=== PATIENT | male | born 1970 | race Caucasian/White ===

== ENCOUNTER → 2018-11-05 12:24 | Outpatient (CLI) | payer BC, SELFPAY ==
[2018-11-09 18:37] LABS: Testosterone, Total, LC/MS 561.3 ng/dL (264.0-916.0)
== END ==
PROVIDERS: Visit Provider Urology
DX: E29.1 Testicular hypofunction (principal)
CPT/HCPCS: 36415; 84403

== ENCOUNTER → 2022-11-08 11:25 | Outpatient (CLI) | payer MEDICARE, BC, SELFPAY ==
[2022-11-08 18:40] LABS: Alanine Aminotransferase 24 U/L (12-78); Albumin Level 4.2 g/dl (3.5-5.0); Albumin/Globulin Ratio 1.8 (1.1-1.8); Alkaline Phosphatase 75 U/L (38-126); Anion Gap 16.1 mEq/L (5-15); Aspartate Amino Transferase 29 U/L (17-59); Basophils % 0.6 % (0.1-2.0); Bilirubin,Total 0.8 mg/dl (0.2-1.3); Blood Urea Nitrogen 35 mg/dl (9-20); Calcium 9.7 mg/dl (8.4-10.2); Carbon Dioxide 25 mmol/L (22.0-30.0); Chloride 105 mmol/L (98-107); Chol/HDL Ratio 4.5 (1-3.5); Cholesterol 130 mg/dl (140-200); Eosinophils # 0.1 K/mm3 (0.0-0.4); Eosinophils % 1.8 % (0.1-12.0); Estimated Glomerular Filt Rate 58 ml/min (>60); GFR (African American) 70 ML/MIN (>60); Globulin 2.4 g/dL (1.3-3.2); Glucose 89 mg/dl (74-100); HDL Cholesterol 29 mg/dl (40-60); Hematocrit 40.2 % (42.0-52.0); Hemoglobin 12.7 g/dL (14.1-18.0); Lymphocytes # 1.4 K/mm3 (0.7-4.5); Lymphocytes % 19.4 % (10-50); Mean Corpuscular HGB Conc 31.5 g/dL (31.8-35.4); Mean Corpuscular Volume 98.3 fl (80-94); Mean Platelet Volume 10.3 fl (7.4-10.4); Monocytes # 0.6 K/mm3 (0.1-1.0); Monocytes % 7.5 % (1.7-9.3); Neutrophils # 5.3 K/mm3 (1.8-7.8); Neutrophils % 70.8 % (37.0-80.0); Platelet Count 254 K/mm3 (142-424); Potassium 5.1 mmoL/L (3.5-5.1); Red Blood Count 4.09 M/mm3 (4.60-6.20); Red Cell Distribution Width 14.5 % (11.5-17.5); Sodium 141 mmol/L (136-145); Total Protein,Serum 6.6 g/dl (6.3-8.2); Triglycerides 230 mg/dl (30-150); Uric Acid 9.9 mg/dl (3.5-8.5); VLDL Cholesterol 46 mg/dL (0-40); White Blood Count 7.4 K/mm3 (4.8-10.8)
[2022-11-09 14:13] LABS: Thyroid Stimulating Hormone 3.09 uIU/mL (0.465-4.68)
== END ==
PROVIDERS: PCP Family Medicine; Visit Provider Family Medicine
DX: M10.9 Gout, unspecified (principal); I10 Essential (primary) hypertension; E11.9 Type 2 diabetes mellitus without complications; E78.5 Hyperlipidemia, unspecified; E03.9 Hypothyroidism, unspecified; Z79.84 Long term (current) use of oral hypoglycemic drugs
CPT/HCPCS: 80053; 80061; 83036; 84443; 84550; 85025

== ENCOUNTER → 2023-09-04 11:30 | Outpatient (CLI) | payer MEDICARE, BC, SELFPAY ==
[2023-09-04 16:38] LABS: Basophils % 0.3 % (0.1-2.0); Eosinophils % 0.3 % (0.1-12.0); Hemoglobin 14.3 g/dL (14.1-18.0); Lymphocytes # 0.7 K/mm3 (0.7-4.5); Lymphocytes % 6.1 % (10-50); Mean Corpuscular HGB Conc 34.2 g/dL (31.8-35.4); Mean Corpuscular Hemoglobin 31.7 pg (27.0-31.2); Mean Corpuscular Volume 92.9 fl (80-94); Mean Platelet Volume 11.2 fl (7.4-10.4); Monocytes # 0.3 K/mm3 (0.1-1.0); Monocytes % 2.7 % (1.7-9.3); Neutrophils # 10.3 K/mm3 (1.8-7.8); Neutrophils % 90.5 % (37.0-80.0); Platelet Count 243 K/mm3 (142-424); Red Blood Count 4.52 M/mm3 (4.60-6.20); Red Cell Distribution Width 13.6 % (11.5-17.5); White Blood Count 11.4 K/mm3 (4.8-10.8)
[2023-09-04 16:49] LABS: MANUAL DIFFERENTIAL MANUAL DIFFERENTIAL (MANUAL DIFF)
[2023-09-04 17:14] LABS: Alanine Aminotransferase 31 U/L (12-78); Albumin Level 4.5 g/dl (3.5-5.0); Albumin/Globulin Ratio 1.5 (1.1-1.8); Alkaline Phosphatase 97 U/L (38-126); Anion Gap 18.8 mEq/L (5-15); Aspartate Amino Transferase 32 U/L (17-59); Bilirubin,Total 1.1 mg/dl (0.2-1.3); Blood Urea Nitrogen 26 mg/dl (9-20); Calcium 9.6 mg/dl (8.4-10.2); Carbon Dioxide 20 mmol/L (22.0-30.0); Chloride 102 mmol/L (98-107); Chol/HDL Ratio 5.6 (1-3.5); Cholesterol 169 mg/dl (140-200); Estimated Glomerular Filt Rate 63 ml/min (>60); GFR (African American) 76 ML/MIN (>60); Glucose 358 mg/dl (74-100); HDL Cholesterol 30 mg/dl (40-60); Potassium 5.8 mmoL/L (3.5-5.1); Sodium 135 mmol/L (136-145); Total Protein,Serum 7.5 g/dl (6.3-8.2); Triglycerides 277 mg/dl (30-150); VLDL Cholesterol 55 mg/dL (0-40)
[2023-09-04 17:20] LABS: Lymphocytes % 9 % (10-50); Monocytes % 1 % (2-9); Neutrophils % 90 % (42-76); Platelet Estimate Normal; RBC Morphology Normal; Total Cells Counted 100
[2023-09-04 17:25] LABS: Direct LDL Cholesterol 78.54 mg/dL (100-129)
[2023-09-04 17:28] LABS: Hemoglobin A1C 9.2 % (4.0-6.0)
== END ==
PROVIDERS: PCP Family Medicine; Visit Provider Family Medicine
DX: I10 Essential (primary) hypertension (principal); E11.9 Type 2 diabetes mellitus without complications; Z79.4 Long term (current) use of insulin
CPT/HCPCS: 80053; 80061; 83036; 85007; 85025

== ENCOUNTER 2023-12-12 16:20 | Outpatient (CLI) | payer MEDICARE, SELFPAY ==
[2023-12-12 16:48] LABS: Hemoglobin A1C 8.2 % (4.0-6.0)
[2023-12-12 17:11] LABS: Thyroid Stimulating Hormone 5.48 uIU/mL (0.465-4.68)
== END 2023-12-12 23:59 ==
LOC: LAB.DROPOF 16:23
PROVIDERS: PCP Family Medicine; Visit Provider Family Medicine
DX: E11.9 Type 2 diabetes mellitus without complications (principal); E03.9 Hypothyroidism, unspecified; Z79.4 Long term (current) use of insulin
CPT/HCPCS: 83036; 84443

== ENCOUNTER 2024-03-19 18:00 | Outpatient (CLI) | payer MEDICARE, SELFPAY ==
[2024-03-19 16:47] LABS: Hemoglobin A1C 8.6 % (4.0-6.0)
== END 2024-03-19 23:59 | disposition home or self-care (01) ==
LOC: LAB.DROPOF 03-20 10:11
PROVIDERS: PCP Family Medicine; Visit Provider Family Medicine
DX: E11.9 Type 2 diabetes mellitus without complications (principal); E03.9 Hypothyroidism, unspecified; Z79.4 Long term (current) use of insulin
CPT/HCPCS: 83036; 84443

== ENCOUNTER 2024-06-18 09:44 | Outpatient (CLI) | payer MEDICARE, SELFPAY ==
[2024-06-18 17:09] LABS: Hemoglobin A1C 6.7 % (4.0-6.0)
[2024-06-18 17:14] LABS: Thyroid Stimulating Hormone 5.91 uIU/mL (0.465-4.68)
== END 2024-06-18 23:59 | disposition home or self-care (01) ==
LOC: LAB.DROPOF 06-19 09:46
PROVIDERS: PCP Family Medicine; Visit Provider Family Medicine
DX: E11.9 Type 2 diabetes mellitus without complications (principal); E03.9 Hypothyroidism, unspecified
CPT/HCPCS: 83036; 84443

== ENCOUNTER 2024-09-18 09:30 | Outpatient (CLI) | payer MEDICARE, SELFPAY ==
[2024-09-18 16:14] LABS: Basophils # 0.1 K/mm3 (0-0.2); Basophils % 0.6 % (0.1-2.0); Eosinophils # 0.2 K/mm3 (0.0-0.4); Eosinophils % 1.9 % (0.1-12.0); Hematocrit 44.3 % (42.0-52.0); Hemoglobin 14.2 g/dL (14.1-18.0); Lymphocytes # 1.6 K/mm3 (0.7-4.5); Lymphocytes % 18.2 % (10-50); Mean Corpuscular HGB Conc 32.1 g/dL (31.8-35.4); Mean Corpuscular Hemoglobin 30.6 pg (27.0-31.2); Mean Corpuscular Volume 95.4 fl (80-94); Mean Platelet Volume 10.6 fl (7.4-10.4); Monocytes # 0.5 K/mm3 (0.1-1.0); Monocytes % 5.4 % (1.7-9.3); Neutrophils # 6.3 K/mm3 (1.8-7.8); Neutrophils % 73.8 % (37.0-80.0); Platelet Count 172 K/mm3 (142-424); Red Blood Count 4.65 M/mm3 (4.60-6.20); White Blood Count 8.6 K/mm3 (4.8-10.8)
[2024-09-18 16:38] LABS: Hemoglobin A1C 6.3 % (4.0-6.0)
[2024-09-18 16:42] LABS: Alanine Aminotransferase 27 U/L (12-78); Albumin Level 4.1 g/dl (3.5-5.0); Albumin/Globulin Ratio 1.6 (1.1-1.8); Alkaline Phosphatase 55 U/L (38-126); Aspartate Amino Transferase 28 U/L (17-59); Bilirubin,Total 0.9 mg/dl (0.2-1.3); Blood Urea Nitrogen 21 mg/dl (9-20); Calcium 9.3 mg/dl (8.4-10.2); Carbon Dioxide 22 mmol/L (22.0-30.0); Chloride 112 mmol/L (98-107); Chol/HDL Ratio 3.3 (1-3.5); Cholesterol 109 mg/dl (140-200); Estimated Glomerular Filt Rate 69 ml/min (>60); GFR (African American) 84 ML/MIN (>60); Globulin 2.5 g/dL (1.3-3.2); Glucose 90 mg/dl (74-100); HDL Cholesterol 33 mg/dl (40-60); Sodium 143 mmol/L (136-145); Total Protein,Serum 6.6 g/dl (6.3-8.2); Triglycerides 68 mg/dl (30-150); VLDL Cholesterol 14 mg/dL (0-40)
[2024-09-18 16:54] LABS: Direct LDL Cholesterol 66.13 mg/dL (100-129)
[2024-09-18 17:13] LABS: Thyroid Stimulating Hormone 8.21 uIU/mL (0.465-4.68)
== END 2024-09-18 23:59 | disposition home or self-care (01) ==
LOC: LAB.DROPOF 09-19 12:31
PROVIDERS: PCP Family Medicine; Visit Provider Family Medicine
DX: E11.9 Type 2 diabetes mellitus without complications (principal); E03.9 Hypothyroidism, unspecified; E78.5 Hyperlipidemia, unspecified; R06.02 Shortness of breath
CPT/HCPCS: 80053; 80061; 83036; 84443; 85025

== ENCOUNTER 2024-12-18 14:03 | Outpatient (CLI) | payer MEDICARE, SELFPAY ==
[2024-12-18 18:11] LABS: Microalbumin/Creatinine Ratio 6.1
[2024-12-18 18:35] LABS: Creatinine,Urine Random 118 mg/dL (Not Estab.)
== END 2024-12-18 23:59 | disposition home or self-care (01) ==
LOC: LAB.DROPOF 12-22 14:05
PROVIDERS: PCP Family Medicine; Visit Provider Family Medicine
DX: E11.9 Type 2 diabetes mellitus without complications (principal)
CPT/HCPCS: 82043; 82570

== ENCOUNTER 2025-03-11 13:59 | Outpatient (CLI) | payer MEDICARE, SELFPAY ==
[2025-03-11 13:52] LABS: Basophils # 0.1 K/mm3 (0-0.2); Basophils % 0.8 % (0.1-2.0); Eosinophils # 0.3 K/mm3 (0.0-0.4); Eosinophils % 3.5 % (0.1-12.0); Hematocrit 43.8 % (42.0-52.0); Hemoglobin 14.3 g/dL (14.1-18.0); Lymphocytes # 1.7 K/mm3 (0.7-4.5); Lymphocytes % 21.8 % (10-50); Mean Corpuscular HGB Conc 32.6 g/dL (31.8-35.4); Mean Corpuscular Volume 94.8 fl (80-94); Mean Platelet Volume 12.9 fl (7.4-10.4); Monocytes # 0.5 K/mm3 (0.1-1.0); Neutrophils # 5.1 K/mm3 (1.8-7.8); Neutrophils % 65.9 % (37.0-80.0); Nucleated Red Blood Cells # 0 10^3/uL; Nucleated Red Blood Cells % 0 %; Platelet Count 159 K/mm3 (142-424); Red Blood Count 4.62 M/mm3 (4.60-6.20); Red Cell Distribution Width 13.7 % (11.5-17.5); Red Cell Distribution Width-SD 47.4 fL; White Blood Count 7.7 K/mm3 (4.8-10.8)
[2025-03-11 14:22] LABS: Alanine Aminotransferase 31 U/L (12-78); Albumin Level 3.9 g/dl (3.5-5.0); Albumin/Globulin Ratio 1.3 (1.1-1.8); Alkaline Phosphatase 97 U/L (38-126); Anion Gap 15.5 mEq/L (5-15); Aspartate Amino Transferase 27 U/L (17-59); Blood Urea Nitrogen 17 mg/dl (9-20); Carbon Dioxide 24 mmol/L (22.0-30.0); Chloride 105 mmol/L (98-107); Chol/HDL Ratio 4.5 (1-3.5); Cholesterol 103 mg/dl (140-200); Estimated Glomerular Filt Rate 69 ml/min (>60); GFR (African American) 84 ML/MIN (>60); Glucose 148 mg/dl (74-100); HDL Cholesterol 23 mg/dl (40-60); Potassium 4.5 mmoL/L (3.5-5.1); Sodium 140 mmol/L (136-145); Total Protein,Serum 6.9 g/dl (6.3-8.2); Triglycerides 256 mg/dl (30-150); VLDL Cholesterol 51 mg/dL (0-40)
[2025-03-11 14:49] LABS: Direct LDL Cholesterol < 30.00 mg/dL (100-129)
[2025-03-11 14:56] LABS: Prostate Specific Ag Screen 0.2 ng/ml (0.0-4.0); Thyroid Stimulating Hormone 4.95 uIU/mL (0.465-4.68)
[2025-03-11 15:17] LABS: HIV Combo NEGATIVE (Negative)
[2025-03-11 15:29] LABS: Hepatitis C Ab Qual. W/ RFX NEGATIVE (Negative)
[2025-03-11 17:55] LABS: Hemoglobin A1C 6.5 % (4.0-6.0)
== END 2025-03-11 23:59 | disposition home or self-care (01) ==
LOC: LAB.DROPOF 14:00
PROVIDERS: PCP Family Medicine; Visit Provider Family Medicine
DX: E11.9 Type 2 diabetes mellitus without complications (principal); Z79.4 Long term (current) use of insulin; Z79.85 Long-term (current) use of injectable non-insulin antidiabetic drugs; Z68.43 Body mass index [BMI] 50.0-59.9, adult; Z12.5 Encounter for screening for malignant neoplasm of prostate; Z11.59 Encounter for screening for other viral diseases
CPT/HCPCS: 80053; 80061; 83036; 84443; 85025; 86803; 87389; G0103

== ENCOUNTER 2025-10-26 09:07 | Outpatient (CLI) | payer MEDICARE, SELFPAY ==
--- NOTE | 2025-10-26 09:08 | XR_ITS ---
FINAL REPORT CLINICAL HISTORY: Left Knee Pain COMPARISON: 12/26/2014 FINDINGS: AP, lateral and oblique views of the left knee were obtained. There is no prior exam for comparison. There is no acute osseous abnormality of the left knee. Mild degenerative joint disease. The soft tissues are normal. There is no joint effusion. IMPRESSION: No acute osseous abnormality of the left knee. Mild degenerative changes. Reviewed, Interpreted and Dictated by Rosalind Paulino MD Transcribed by Luh Roberts Authenticated and [facility]
--- OUTSIDE RECORDS SUMMARY | 2025-10-26 09:14 | XMS_ITS | Clinical Summary ---
Author Organization [facility] Address [address] [place] [address] Care Team Providers Care Virtual Assistant For Advertisers Name Role Phone Humberto Gibbons MD Primary Care Provider [phone] Allergies No known active allergies Medications ONE TOUCH ULTRA TEST test strip 7 Active ibuprofen (ADVIL,MOTRIN) 800 MG tablet Take 1 tablet by mouth As Needed. 7 Active lisinopril-hydr ochlorothiazide (PRINZIDE,ZESTO RETIC) 20-12.5 MG per tablet Take 1 tablet by mouth 2 (Two) Times a Day. 9 Active glipizide (GLUCOTROL) 10 MG tablet TAKE 2 TABLETS 2 TIMES EACH DAY, 30 MINUTES BEFORE MEALS. 2 Active atorvastatin (LIPITOR) 80 MG tablet Take 1 tablet by mouth Daily. 2 Active Ozempic, 0.25 or 0.5 MG/DOSE, 2 MG/3ML solution pen-injector INJECT 0.25 MG UNDER THE SKIN 1 TIME EACH WEEK FOR 4 WEEKS. THEN INJECT 0.5 MG 1 TIME EACH WEEK. 3 Active albuterol (ACCUNEB) 0.63 MG/3ML nebulizer solution INHALE CONTENTS OF 1 VIAL USING A NEBULIZER EVERY 6 HOURS 4 Active allopurinol (ZYLOPRIM) 300 MG tablet 1 tablet. 4 Active Toujeo Max SoloStar 300 UNIT/ML solution pen-injector injection INJECT 150 UNITS UNDER THE SKIN 1 TIME EACH DAY 4 Active pioglitazone (ACTOS) 15 MG tablet TAKE 1 TABLET 1 TIME EACH DAY 4 Active Active Problems Problem Noted Date Diagnosed Date Controlled type 2 diabetes m ellitus without complication, without long-term current use of insulin 12/03/2019 Left ankle pain 12/03/2019 Osteoarthritis of ankle or foot 12/03/2019 Renal insufficiency 08/15/2019 Hypothyroidism (acquired) 08/15/2019 Renal cyst 08/15/2019 Urethral stone 08/14/2019 Mixed hyperlipidemia 08/14/2019 Uncontrolled type 2 diabetes mellitus with hyper glycemia 01/06/2019 Class 3 severe obesity due t o excess calories with serious comorbidity and body mass index (BMI) of 50.0 to 59.9 in adult 01/06/2019 Pain 05/08/2018 Venous stasis 05/08/2018 Ankle arthritis 05/02/2017 Chronic gout of right ankle 05/02/2017 Encounters Date Type Department Care Team Description 08/05/2025 10:30 AM EDT Office Visit [facility] [address] [facility] [address] [place] [address] Gaviota Rooney MD 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, unspecified laterality (Primary Dx) 08/05/2025 Travel from Last 3 Months Family History Medical History Relation Name Comments Diabetes Brother Artem Gonzalez Hypertension Brother Artem Gonzalez Cancer Mother Daksha Lainez Diabetes Mother Daksha Lainez Hypertension Mother Daksha Lainez Heart attack Other Grandparent Relation Name Status Comments Brother Artem Gonzalez Father Mother Daksha Lainez Alive Other Grandparent Social History Tobacco Use Types Packs/Day Years Used Date Smoking Tobacco: Former Cigarettes 2 15 0 11/26/1981 - 11/26/1996 Passive Smoke Exposure: Past Smokeless Tobacco: Never Tobacco Cessation:Counseling Given: Not Answered Alcohol Use Standard Drinks/Week Comments No 0 (1 standard drink = 0.6 oz pur e alcohol) Sex and Gender Information Value Date Recorded Sex Assigned at Not on file Legal Sex Male 1:36 PM EDT Gender Identity Not on file Sexual Orientation Not on file Last Filed Vital Signs Vital Sign Reading Time Taken Comments Blood Pressure 134/82 08/05/2025 10:34 AM EDT Pulse 105 09/22/2020 2:53 PM EDT Temperature 36.6 C (97.8 F) 08/16/2019 8:30 AM EDT Respiratory Rate 18 08/16/2019 8:30 AM EDT Oxygen Saturation 98% 09/22/2020 2:53 PM EDT Inhaled Oxygen Concentration - - Weight 175 kg (386 lb) 08/05/2025 10:34 AM EDT Height 177.8 cm (5' 10 ) 08/05/2025 10:34 AM EDT Body Mass Index 55.39 08/05/2025 10:34 AM EDT Plan of Treatment Health Maintenance Due Date Last Done Comments LIPID PANEL 1969 DIABETIC EYE EXAM 1979 DIABETIC FOOT EXAM 1979 URINE MICROALBUMIN-CREATININE RATIO (uACR) 1979 Hepatitis B (1 of 3 - 19+ 3-dose series) 1988 Pneumococcal Vaccine 50+ (1 of 2 - PCV) 1988 TDAP/TD VACCINES (1 - Tdap) 1988 COLOGUARD 2014 COLON CANCER SCREENING 5 YEAR SIGMOIDOSCOPY 2014 COLONOSCOPY [address] CANCER SCREENING 2014 CT COLONOGRAPHY 2014 FECAL OCCULT BLOOD TEST 2014 FIT Testing (1 year) 2014 ANNUAL WELLNESS VISIT 04/13/2017 HEMOGLOBIN A1C 04/13/2017 HEPATITIS C SCREENING 04/13/2017 ZOSTER VACCINE (1 of 2) 2019 INFLUENZA VACCINE 06/26/2025 Procedures Procedure Name Priority Date/Time Associated Diagnosis Comments ID ARTHROCENTESIS ASPIR&/INJ INTERM JT/BURS W/O US Routine 08/05/2025 10:40 AM EDT 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 Consent was given by the patient. Immediately prior to procedure a time out was called to verify the correct patient, procedure, equipment, information support project manager and site/side marked as required. Patient was prepped and draped in the usual sterile fashion. Gaviota Rooney MD PROCEDURE/MINOR SURGICAL ORDER CRISTI Final Result from Last 3 Months Insurance [facility] H[facility] Advance Directives * CPR (Attempt to Resuscitate) (Latest Code Status on File) Date Activated Date Inactivated Comments 08/14/2019 10:19 PM 08/16/2019 11:48 AM Question Answer Comments Code Status (Patient has no pulse and is not breathing): CPR (Attempt to Resuscitate) Medical Interventions (Patie nt has pulse or is breathing): Full Care Teams Virtual Assistant For Advertisers Relationship Specialty Start Date End Date Humberto Gibbons MD [address] [place] [address] [place] [id number] PCP - General Family Medicine 08/20/23
== END 2025-10-26 23:59 | disposition home or self-care (01) ==
LOC: RAD 09:08
PROVIDERS: PCP Family Medicine; Visit Provider Physician Assistant Surgical
DX: M17.12 Unilateral primary osteoarthritis, left knee (principal)
CPT/HCPCS: 73562